=== PATIENT | male | born 1965 ===

== ENCOUNTER 2019-10-15 14:08 | Observation (INO) ==
[2019-10-15 18:53] LABS: Basophils # 0.1 10*3/uL (0.0-0.2); Basophils % 0.5 % (0.0-0.8); Eosinophils # 0.3 10*3/uL (0.0-0.87); Hematocrit 40.9 VOL% (42.0-52.0); Hemoglobin 12.6 GM/DL (14.0-18.0); Immature Granulocytes % 0.9 %; Immature Granulocytes Absolute 0.12 #; Lymphocytes # 2.9 10*3/uL (1.4-4.0); Lymphocytes % 22.8 % (21.2-54.2); Mean Corpuscular HGB Conc 30.8 GM/DL (32-36); Mean Corpuscular Volume 98.8 FL (87-102); Mean Platelet Volume 9.4 FL (9.6-12.0); Neutrophils % 66.8 % (38.7-73.9); Platelet Count 294 T/CUMM (130-400); Red Blood Count 4.14 MC/CUMM (3.8-5.5); Red Cell Distribution Width 14.1 % (9.3-17.3); White Blood Count 12.7 T/CUMM (4-12)
[2019-10-15 19:13] LABS: Albumin 2.5 G/DL (3.4-5.0); Bilirubin,Total 0.4 MG/DL (0.2-1.0); Calcium 8.3 MG/DL (8.5-10.1); Osmolality,Calculated 287.4 MOS/KG (273-304); Total Protein 6.8 G/DL (6.4-8.3)
[2019-10-15] MEDS ORDERED: NICOTINE 21 MG/24 HR PATCH TRANSDERM PRN (20:02)
[2019-10-15 20:59] LABS: Troponin I 0.359 NG/ML (0.00-0.045)
[2019-10-15] MEDS ORDERED: ATORVASTATIN 40 MG TABLET PO SCH (21:00)
[2019-10-15] MEDS: HEPARIN 5,000 UNIT/1 ML VIAL SUBCUT SCH (22:14)
[2019-10-16 05:50] LABS: Basophils # 0.1 10*3/uL (0.0-0.2); Basophils % 0.5 % (0.0-0.8); Eosinophils # 0.3 10*3/uL (0.0-0.87); Eosinophils % 2.2 % (0.00-10.9); Hematocrit 38.4 VOL% (42.0-52.0); Hemoglobin 11.7 GM/DL (14.0-18.0); Immature Granulocytes % 0.9 %; Immature Granulocytes Absolute 0.11 #; Lymphocytes # 3.1 10*3/uL (1.4-4.0); Mean Corpuscular HGB Conc 30.5 GM/DL (32-36); Mean Corpuscular Volume 101.3 FL (87-102); Mean Platelet Volume 9.9 FL (9.6-12.0); Monocytes % 10.2 % (1.7-12.7); Neutrophils % 59.2 % (38.7-73.9); Platelet Count 318 T/CUMM (130-400); Red Blood Count 3.79 MC/CUMM (3.8-5.5); Red Cell Distribution Width 14.2 % (9.3-17.3); White Blood Count 11.6 T/CUMM (4-12)
[2019-10-16 06:08] LABS: Alanine Aminotransferase < 9 U/L (16-61); Albumin 2.4 G/DL (3.4-5.0); Alkaline Phosphatase 115 U/L (45-117); Aspartate Amino Transferase 13 U/L (0-37); Blood Urea Nitrogen 39 MG/DL (7-18); Estimated Glom Filtration Rate 10 ML/MIN; Glucose 100 MG/DL (74-106); Osmolality,Calculated 289.3 MOS/KG (273-304); Total Protein 6.5 G/DL (6.4-8.3)
[2019-10-16] MEDS ORDERED: PANTOPRAZOLE 40 MG TABLET PO SCH (09:00)
[2019-10-16] MEDS ORDERED: AMITRIPTYLINE 25 MG TABLET PO SCH (09:00)
[2019-10-16] MEDS ORDERED: ASPIRIN EC 81 MG TABLET PO SCH (09:00)
[2019-10-16] MEDS: HEPARIN 5,000 UNIT/1 ML VIAL SUBCUT SCH (09:21)
[2019-10-16] MEDS ORDERED: LORazepam 2 MG/1 ML VIAL IM ONE (09:57)
[2019-10-16] MEDS: LORazepam 2 MG/1 ML VIAL IM ONE ×2 (13:37→13:39)
[2019-10-16 17:08] VITALS: BP 144/76
[2019-10-17] MEDS ORDERED: CLOPIDOGREL 75 MG TABLET PO SCH (09:00)
== END 2019-10-16 20:00 | disposition home or self-care (01) ==
LOC: N.2W → SUATTDRO 16:13
PROVIDERS: ADMIT Internal Medicine; ATTEND Family Medicine

== ENCOUNTER 2020-11-24 19:24 | Observation (INO) ==
[2020-11-24] MEDS ORDERED: ONDANSETRON 4 MG/2 ML VIAL IV PRN (22:39)
[2020-11-24] MEDS ORDERED: DEXTROSE 50% 25 GM/50 ML VIAL IV PRN ×2 (22:39)
[2020-11-24] MEDS ORDERED: ACETAMINOPHEN 325 MG TABLET PO PRN (22:39)
[2020-11-24] MEDS ORDERED: GLUCAGON 1 MG VIAL IM PRN ×2 (22:39)
[2020-11-24] MEDS ORDERED: hydrALAZINE 20 MG/1 ML VIAL IV PRN (22:44)
[2020-11-25] MEDS: rOPINIRole 0.25 MG TABLET PO SCH ×2 (00:21→20:29)
[2020-11-25] MEDS: ENOXAPARIN 30 MG/0.3 ML SYRINGE SUBCUT SCH (00:21)
[2020-11-25 07:43] LABS: Basophils # 0.1 10*3/uL (0.0-0.2); Basophils % 0.6 % (0.0-0.8); Eosinophils # 0.1 10*3/uL (0.0-0.87); Eosinophils % 1.6 % (0.00-10.9); Hematocrit 29.3 VOL% (42.0-52.0); Hemoglobin 9.5 GM/DL (14.0-18.0); Immature Granulocytes % 0.7 %; Immature Granulocytes Absolute 0.06 #; Lymphocytes # 1.5 10*3/uL (1.4-4.0); Lymphocytes % 17.5 % (21.2-54.2); Mean Corpuscular HGB Conc 32.4 GM/DL (32-36); Mean Corpuscular Volume 99.3 FL (87-102); Mean Platelet Volume 9.5 FL (9.6-12.0); Monocytes % 12.7 % (1.7-12.7); Neutrophils % 66.9 % (38.7-73.9); Platelet Count 137 T/CUMM (130-400); Red Blood Count 2.95 MC/CUMM (3.8-5.5); Red Cell Distribution Width 15.7 % (9.3-17.3); White Blood Count 8.7 T/CUMM (4-12)
[2020-11-25] MEDS: INSULIN REGULAR 100 UNIT/ML SUBCUT SCH ×4 (07:57→20:29)
[2020-11-25] MEDS: PANTOPRAZOLE 40 MG TABLET PO SCH (08:20)
[2020-11-25 08:38] LABS: Albumin 2.8 G/DL (3.4-5.0); Bilirubin,Total 1.4 MG/DL (0.2-1.0); Calcium 7.5 MG/DL (8.5-10.1); Potassium 5.6 MMOL/L (3.5-5.1); Total Protein 7.4 G/DL (6.4-8.2)
[2020-11-26] MEDS: ENOXAPARIN 30 MG/0.3 ML SYRINGE SUBCUT SCH (00:06)
[2020-11-26] MEDS: GABAPENTIN 300 MG CAPSULE PO SCH ×2 (00:13→08:47)
[2020-11-26] MEDS: INSULIN REGULAR 100 UNIT/ML SUBCUT SCH (08:11)
[2020-11-26] MEDS: PANTOPRAZOLE 40 MG TABLET PO SCH (08:47)
[2020-11-26 12:07] VITALS: BP 129/63
== END 2020-11-26 12:18 | disposition home or self-care (01) ==
LOC: N.TELEN → SUATTDRO 22:18
PROVIDERS: ADMIT Internal Medicine; ATTEND Internal Medicine